=== PATIENT | female | born 1990 | race Caucasian/White ===

== ENCOUNTER 2016-08-07 18:28 | Emergency (ER) | payer BC ==
[~2016-08-07] VITALS: Ht 167.6 cm; Wt 144.0 kg
[~2016-08-07 18:28] MED LIST: BENZ100C97 PO; BUPR300T57 PO; CLON0.5T4 PO; DIVA500T4 PO; FLUT9.9S; FOLI1TAB15 PO; GUAI120L62 PO; LEVO1TAB69; MULT-933 PO; PROP10TA10 PO; TOPI25TA37 PO; ZOLP5TAB2 PO
--- OUTSIDE RECORDS SUMMARY | 2016-08-07 18:32 | XMS REPORT | Continuity of Care Document ---
Author Author [facility] Organization [facility] Address Unknown Phone Unavailable Care Team Providers Care Preparation Department Supervisor Name Role Phone ISRAEL SAENZ MD Primary Care Physician [phone] Insurance Providers Guarantor Bruno Vinson Address [address] [place] [id number] [facility] [employer] Other Policy Number [id number] Subscriber's Name Bruno Vinson Martha Relationship 19 Self Group Number [id number] Chief Complaint and Reason for Visit Chief Complaint Cough,Fever,Flu,URI Reason for Visit [id number] Problems Past Problems Medical Problem Onset Date Viral upper respiratory infection Unknown Medications Current Home Medications Medication Dose Units Route Directions Days Qty Instructions Start Date Benzonatate (Tessalon Perle) 100 Mg Capsule 100 Mg Oral Every 8 Hours for Cough 14 Days [address] Brett Wells Insurance Clerk [facility] [address] [phone] 06/24/16 Bupropion Hcl (Wellbutrin Xl) 300 Mg Tab.er.24h 06/24/16 Clonazepam Unknown Strength Tablet Unknown Dose Oral Twice A Day 06/24/16 Divalproex Sodium (Depakote Er) 500 Mg Tab.er.24h 1 Tab Oral Bedtime 06/24/16 Fluticasone Propionate (Flonase Allergy Relief 50 Mcg/Actuation Nasal) 9.9 Ml [place].susp 06/24/16 Folic Acid 1 Mg Tablet 1 Tab Oral Daily 06/24/16 Guaifenesin/Codeine Phosphate (Codeine-Guaifen 10-100 Mg/5 Ml) 120 Ml Liquid 5 Ml Oral Every Night Prn for Cough 10 Days [address] Brett Wells Insurance Clerk [facility] [address] [phone] 06/24/16 Levonorgestrel-Ethin Estradiol (Falmina-28 Tablet) 1 Each Tablet 06/24/16 Multivitamin (Multi-Day Vitamins) 1 Each Tablet 1 Tab Oral Daily 30 Tablet 06/24/16 Propranolol Hcl 10 Mg Tablet 10 Mg Oral Twice A Day Take 1 tablet, by mouth, 2 times a day. 06/24/16 Topiramate (Topamax) 25 Mg Tablet 12.5 Mg Oral Twice A Day Take 1/2 (25 mg) tablet, by mouth, 2 times a day. 06/24/16 Zolpidem Tartrate (Ambien) Unknown Strength Tablet Unknown Dose Oral Bedtime Take 1 tablet, by mouth, 1 time a day (at BEDTIME). 06/24/16 Social History No social history. Hospital Discharge Instructions No hospital discharge instructions. Plan of Care Discharge Date 06/24/16 1:06pm Disposition 01 DISCHARGED HOME, SELF-CARE Condition at Discharge Stable Instructions/Education Provided Upper Respiratory Infection (ED) Acute Cough (ED) Forms Provided Return to Work/School Permit Prescriptions See Medication Section Referrals ISRAEL SAENZ MD Address: [address] [place] [id number] Additional Instructions/Education Take codeine cough medicine at bedtime as needed. Use Tessalon Perles during daytime as needed for cough. Take ibuprofen up to 800 mg every 8 hours as needed for body aches and fevers. Follow with primary care provider if not improving. Functional Status No functional status results. Allergies, Adverse Reactions, Alerts Allergen Type Severity Reaction Status Last Updated Iodine Allergy Mild Active 06/24/16 Oxycodone Allergy Mild Active 06/24/16 Acetaminophen Allergy Mild Active 06/24/16 Clavulanate Allergy Mild Active 06/24/16 Sulfamethoxazole Allergy Mild Active 06/24/16 Trimethoprim Allergy Mild Active 06/24/16 Amoxicillin Allergy Mild Active 06/24/16 Immunizations No immunization records. Vital Signs Acute Vital Signs Vital Response Date/Time Temperature (Fahrenheit) 98.4 deg F (96.8 - 99.1) 06/24/2016 12:16pm Temperature (Calculated Celsius) 36.68299 degrees C (36.0 - 37.3) 06/24/2016 12:16pm Pulse Rate (adult) 72 bpm (60 - 100) 06/24/2016 12:16pm Respiratory Rate 20 breaths/min (10 - 20) 06/24/2016 12:16pm O2 Sat by Pulse Oximetry 96 % (90 - 100) 06/24/2016 12:16pm Blood Pressure 129/80 mm Hg 06/24/2016 12:16pm Height (Inches) 67.20 inches 06/24/2016 12:16pm Weight (Kilograms) 143.000 kg 06/24/2016 12:16pm Body Mass Index (BMI) 49.0 06/24/2016 12:16pm Results Laboratory Results Test Name Result Units Flags Reference Collection Date/Time Result Date/ Time Comments Influenza Type A Antigen NEGATIVE NEGATIVE 06/24/2016 12:40pm 2016 12:53pm Negative for Flu A protein antigen. Assay sensitivity is 90%. Influenza Type B Antigen NEGATIVE NEGATIVE 06/24/2016 12:40pm 2016 12:53pm Negative for Flu B protein antigen. Assay sensitivity is 90%. Procedures No known history of procedures. Encounters Encounter Location Arrival/Admit Date Discharge/Depart Date Attending Provider Departed Emergency Room [facility] 06/24/16 11:40am 06/24/16 1: 06pm BRITTA BENITEZ APRN Recent Diagnosis
--- OUTSIDE RECORDS SUMMARY | 2016-08-07 18:32 | XMS REPORT | Continuity of Care Document ---
Author Author [facility] Organization [facility] Address Unknown Phone Unavailable Allergies Medications Problems Procedures Results Encounters ACCT No. Visit Date/Time Discharge Status Pt. Type Provider Facility Loc./Unit Complaint [id number] 09/16/2012 23:56:00 2012 03:03:00 DIS Emergency [facility], José Antonio Sahni [facility] W.EDS
[2016-08-07 18:41] VITALS: Ht 167.6 cm; Wt 144.0 kg
--- NOTE | 2016-08-07 18:48 | NUR ---
LUNG ASCULTATION PT REPORTS HX ACTIVITY INDUCED ASTHMA. EXPIRATORY WHEEZE ALL [place]. NON-LABORED RESPIRATIONS AT 16/MIN.
[2016-08-07] MEDS ORDERED: NORMAL SALINE 1,000 ML IV ONE (18:57)
[2016-08-07] MEDS ORDERED: ALBUTEROL/IPRATROPIUM INHAL. 2.5mg-0.5mg/3ml Neb. AEROSOL ONE ×2 (19:00→21:00)
--- NOTE | 2016-08-07 19:00 | NUR ---
DR DR HAND AT BEDSIDE.
--- NOTE | 2016-08-07 19:03 | NUR ---
REPORT GIVEN TO BENJAMIN SQUIRES. CARE ASSUMED.
--- NOTE | 2016-08-07 19:08 | ERPDOC ---
Departure Disposition Decision Date: Aug 07, 2016 Disposition Decision Time: 21:19 Disposition: 01 DISCHARGED HOME, SELF-CARE Impression Impression Impression: Primary Impression: Aspiration pneumonitis Additional Impression: Asthma exacerbation Severity: Moderate Condition: Improved Seen By: Physician only Referrals: ISRAEL SAENZ MD (PCP) 3 Days Patient Instructions: Asthma (ED) Problems/Meds/Labs Reviewed?: Yes Medications reviewed and manag: Yes Additional Instructions: You have had irritation of your lungs caused by stomach acid. Use the albuterol inhaler for wheezing/tightness. Take the steroids as prescribed to help with irritation. Discuss the use of propranolol in the setting of asthma with your doctor. Follow up with your doctor this next week. Follow up care ordered?: Yes Mental Status: Alert, Oriented Scripts Albuterol Sulfate (Proair HFA 90 mcg/actuation) 8.5 Gm Hfa.aer.ad 2 PUFF INH Q4H Y for WHEEZING for 30 Days, INHALER Prov: AUGUSTOPAL DO 08/07/16 Prednisone (Prednisone) 20 Mg Tablet 60 MG PO DAILY for 5 Days, #15 TAB 0 Refills Take daily each morning Prov: AUGUSTOPAL DO 08/07/16 HPI - Dyspnea General Chief Complaint: General Stated Complaint: WHEEZING,COUGH,FOOD POSSIBLY STUCK Time Seen by Provider: 18:57 Source: patient Exam Limitations: no limitations HPI - Dyspnea Initial Comments 26yo woman presents to the ER tonight with wheezing. Pt was eating an apple at 1200 today; felt like the first bite got stuck. Pt coughed and choked and spit up the piece, then she finished the apple. Ever since, pt has had dyspnea, wheezing, and chest tightness. Pt has a h/o exercise-induced asthma. Occurred At: home Onset/Timing: Rapid Duration: 6-12 hrs Pain/Severity Scale: Now & Worst: 5/10 Severity: moderate Activities at Onset: other Prior Episodes/Possible Cause: occasional episodes Modifying Factors: IMPROVES WITH: rest, WORSE WITH: activity, coughing Associated Symptoms: shortness of breath Aspirin Treatment Today: contraindicated Hx of Similar Symptoms: Yes Allergies: Coded Allergies: acetaminophen (Verified Allergy, Mild, 08/07/16) amoxicillin (Verified Allergy, Mild, 08/07/16) clavulanic acid (Verified Allergy, Mild, 08/07/16) iodine (Verified Allergy, Mild, 08/07/16) oxycodone (Verified Allergy, Mild, 08/07/16) sulfamethoxazole (Verified Allergy, Mild, 08/07/16) trimethoprim (Verified Allergy, Mild, 08/07/16) Past History Past Medical History Respiratory: asthma Neurological: migraines Psychological: anxiety, bipolar, depression Social History # of Years: 8 Substance Use Type: does not use Alcohol Intake: none Review of Systems Pulmonary Respiratory: cough, dyspnea Comments Wheezing All other Systems All Other Systems: Reviewed and Negative Physical Exam General General Nourishment: well nourished, well developed, appears stated age, no acute distress, adult, obese General Body Habitus: well groomed Vitals and Pain First Documented Vital Signs Date Time Temp Pulse Resp B/P Pulse Ox O2 Delivery O2 Flow Rate FiO2 08/07/16 18:41 98.3 80 16 149/80 99 Room Air Weight: Kilograms: 144.000 Height (feet): 5 Height (inches): 6.00 Triage Pain Scale: RN VS reviewed by Provider: Yes Normal Exams: Head: Normocephalic w/o trauma Eyes: Pupils are PERRLA w/ EOMI, No scleral icterus, irritation ENMT: No facial trauma, nasal exudates, pharyngeal erythema Neck: Full range of motion, without adenopathy CV: Regular rate and rhythm, without murmur or gallop, Pulses 2+ all extremities Abdomen: Bowel sounds positive, soft, non-tender, non-distended Lymphatic: No lymphadenopathy Musculoskeletal: No tenderness, or deformity noted, good range of motion Integumentary: No rashes, hives, or bruising noted Neurologic: Patient is alert, and oriented Psychiatric: Patient exhibits, appropriate attention Respiratory (brief) Respiratory: FOUND: equal bilaterally, symmetrical, wheezes (Throughout all air estrada.), NOT FOUND: clear all estrada, rales Differential Diagnoses Considering: Acute Bronchitis, Acute Respiratory Failure, Asthma Exacerbation, Costochondritis, Croup, Foreign Body, Hyperventilation, Influenza, Pneumonia, Pneumothorax, Pulmonary Edema Progress Results/Orders Orders Procedure Category Date Status Time Bmp - Basic Metabolic LAB 08/07/16 Complete Panel 18:57 Cbc W/Auto LAB 08/07/16 Complete Diff-Reflex Manual 18:57 Chest, Pa & Lateral RAD 08/07/16 Resulted 18:57 Iv Lock (Ed Only) EDM 08/07/16 Transmitted 18:57 Normal Saline (Normal PHA 08/07/16 Complete Saline Iv) 18:57 Albuterol/Ipratropium PHA 08/07/16 Complete (Duoneb) 19:00 Methylprednisolone PHA 08/07/16 Complete Sod Succ (Solu-Medrol 19:00 Oxygen Administration EDM 08/07/16 Transmitted 18:57 LAB 08/07/16 Complete Qualitative, Serum 19:14 Lorazepam (Ativan) PHA 08/07/16 Complete 20:15 Albuterol/Ipratropium PHA 08/07/16 Complete (Duoneb) 21:00 Lab Results Laboratory Tests Test 08/07/16 19:30 White Blood Count 10.4T/MM3 Red Blood Count 4.21M/MM3 Hemoglobin 12.8GM/DL Hematocrit 38.9% Mean Corpuscular Volume 92.4UM3 Mean Corpuscular Hemoglobin 30.4UUG Mean Corpuscular Hemoglobin Concent 32.9GM/DL RDW Standard Deviation 40.4FL Platelet Count 343T/MM3 Mean Platelet Volume 9.5UM3 Immature Granulocyte % (Auto) 0.3% Neutrophils (%) (Auto) 58.2% Lymphocytes (%) (Auto) 33.2% Monocytes (%) (Auto) 6.9% Eosinophils (%) (Auto) 1.2% Basophils (%) (Auto) 0.2% Absolute Immature Granulocyte (auto 0.03T/MM3 Absolute Neutrophils (auto) 6.1T/MM3 Absolute Lymphocytes (auto) 3.5T/MM3 Absolute Monocytes (auto) 0.7T/MM3 Absolute Eosinophils (auto) 0.1T/MM3 Absolute Basophils (auto) 0.0T/MM3 Turbidity < 20 Sodium Level 146MEQ/L Potassium Level 3.9MEQ/L Chloride Level 108MEQ/L Carbon Dioxide Level 25MEQ/L Anion Gap 13MEQ/L Blood Urea Nitrogen 15.0MG/DL Creatinine 0.8MG/DL Glomerular Filtration Rate Calc 87 BUN/Creatinine Ratio 19RATIO Glucose Level 85MG/DL Calculated Osmolality 281MOSM/KG Calcium Level 9.7MG/DL Icterus Index < 2 Human Chorionic Gonadotropin, Qual Negative Chemistry Specimen Hemolysis < 15 Medications Current ED Medications Sodium Chloride (Normal Saline IV) 1,000 ml @ 0 mls/hr Q0M ONCE IV Last administered on 08/07/16 19:59; Start 08/07/16 at 18:57; Stop 08/07/16 at 19:00; Status DC Albuterol/ Ipratropium (Duoneb) 3 ml O ONCE AEROSOL Last administered on 19:08; Start 08/07/16 at 19:00; Stop 08/07/16 at 19:01; Status DC Methylprednisolone Sodium Succinate (Solu-Medrol) 125 mg O ONCE IV Last administered on 08/07/16 19:59; Start 08/07/16 at 19:00; Stop 08/07/16 at 19:01; Status DC Lorazepam (Ativan) 1 mg O ONCE PO Last administered on 08/07/16 20:12; Start 08/07/16 at 20:15; Stop 08/07/16 at 20:16; Status DC Albuterol/ Ipratropium (Duoneb) 3 ml O ONCE AEROSOL Last administered on 21:10; Start 08/07/16 at 21:00; Stop 08/07/16 at 21:02; Status DC Progress Progress Discussed contraindication of using propranolol (a beta deb) in a pt with asthma. Pt states that she has been taking the med for migraine prophylaxis since 9yo without incident. Reiterated that pt should discuss with her Dr. Somewhat improved following first neb. Will give second neb. Will plan to d/c with steroid burst to help with inflammation following likely aspiration of food /gastric contents. Lung exam improved with second neb. Xray Xray : Xray: CXR Portable Interpretation: Normal, Interpreted by Nc OPAL HAND DO Aug 07, 2016 19:08 OPAL HAND DO Aug 07, 2016 19:08
--- OUTSIDE RECORDS SUMMARY | 2016-08-07 19:09 | XMS REPORT | Continuity of Care Document ---
Author Author [facility] Organization [facility] Address Unknown Phone Unavailable Allergies Medications Problems Procedures Results Encounters ACCT No. Visit Date/Time Discharge Status Pt. Type Provider Facility Loc./Unit Complaint [id number] 09/16/2012 23:56:00 2012 03:03:00 DIS Emergency [facility], José Antonio Sahni [facility] W.EDS
[2016-08-07] MEDS ORDERED: ZOLP10TA2 PO (19:25)
[2016-08-07] MEDS ORDERED: PROP40TA7 PO (19:25)
[2016-08-07] MEDS ORDERED: CLON1TAB23 PO (19:27)
[2016-08-07] MEDS ORDERED: FEXO180T94 PO (19:27)
[2016-08-07 19:35] LABS: BASOPHILS % (AUTO) 0.2 % (0-2); EOSINOPHILS # (AUTO) 0.1 T/MM3 (0-0.5); EOSINOPHILS % (AUTO) 1.2 % (0-4); HCT - HEMATOCRIT 38.9 % (36-46); HGB - HEMOGLOBIN 12.8 GM/DL (12-16); IMMATURE GRANULOCYTE # (AUTO) 0.03 T/MM3 (0.00-0.03); IMMATURE GRANULOCYTE % (AUTO) 0.3 % (0.0-0.5); LYMPHOCYTES # (AUTO) 3.5 T/MM3 (1-4.8); LYMPHOCYTES % (AUTO) 33.2 % (23-45); MEAN CORPUSCULAR HGB 30.4 UUG (26-34); MEAN CORPUSCULAR HGB CONC(MCHC 32.9 GM/DL (31-37); MEAN CORPUSCULAR VOLUME 92.4 UM3 (80-100); MEAN PLATELET VOLUME 9.5 UM3 (9.4-12.4); MONOCYTES # (AUTO) 0.7 T/MM3 (0-0.8); MONOCYTES % (AUTO) 6.9 % (0-9.0); NEUTROPHILS #(AUTO)-ABSOLUTE 6.1 T/MM3 (1.8-7.7); NEUTROPHILS % (AUTO) 58.2 % (33-66); RED BLOOD COUNT 4.21 M/MM3 (4.00-5.20); WBC - WHITE BLOOD COUNT 10.4 T/MM3 (4.5-11.0)
[2016-08-07 19:44] LABS: ANION GAP 13 MEQ/L (5-15); BUN/CREATININE RATIO 19 RATIO (6-26); CALCIUM 9.7 MG/DL (8.4-10.2); CHLORIDE 108 MEQ/L (98-107); CO2 - CARBON DIOXIDE 25 MEQ/L (22-30); CREATININE 0.8 MG/DL (0.7-1.2); GLOMERULAR FILTRATION RATE 87; GLUCOSE 85 MG/DL (65-110); POTASSIUM 3.9 MEQ/L (3.6-5); SODIUM 146 MEQ/L (134-144)
[2016-08-07] MEDS ORDERED: LORAZEPAM 1 MG TABLET PO ONE (20:15)
[2016-08-07] MEDS ORDERED: ALBU8.5H INH (21:22)
[2016-08-07] MEDS ORDERED: PRED20TA PO (21:22)
[2016-08-07 21:35] VITALS: BP 129/65; PULSE 78; RESP 16; TEMP 98.3; O2SAT 98
--- NOTE | 2016-08-08 08:54 | DI ---
INDICATION: ITS.REASON: Wheezing PROCEDURE: CHEST 2-VIEWS UPRIGHT (PA \T\ LAT) Encounter: Initial COMPARISON: None FINDINGS: The lungs are clear without evidence of focal abnormal airspace opacity. There is no pleural effusion or pneumothorax. Lateral view is limited due to exposure settings. The heart size, mediastinal contours and pulmonary vascularity are within normal limits. There is no significant skeletal abnormality. IMPRESSION: No acute cardiopulmonary disease. .
== END 2016-08-07 21:35 | disposition home or self-care (01) ==
LOC: ED 18:28
DX: J69.0 Pneumonitis due to inhalation of food and vomit (principal); J45.901 Unspecified asthma with (acute) exacerbation; T17.928A Food in respiratory tract, part unspecified causing other injury, initial encounter; X58.XXXA Exposure to other specified factors, initial encounter; Y93.89 Activity, other specified; Y92.009 Unspecified place in unspecified non-institutional (private) residence as the place of occurrence of the external cause; Y99.8 Other external cause status
CPT/HCPCS: 36000; 36415; 71020; 80048; 84703; 85025; 94640; 96361; 96374; 99284; J2930; J7030